=== PATIENT | male | born 1985 | race Hispanic/Latino ===

== ENCOUNTER 2020-02-01 04:15 | Emergency (ER) | payer OTHER, SELFPAY ==
[2020-02-01 04:17] VITALS: BP 145/83; PULSE 75; RESP 18; TEMP 37.1; O2SAT 98; BMI 29.0
--- NOTE | 2020-02-01 04:28 | ED.HA ---
HPI - Headache General Chief Complaint: Headache Stated Complaint: massive headache/migraine 1week Time Seen by Provider: 02/01/20 04:28 Source: patient and family Mode of arrival: Ambulatory Limitations: no limitations History of Present Illness HPI Narrative: 34-year-old male comes to the emergency department with complaint of severe headache. Patient states that headache developed about a week ago very gradually and mild initially. It has been increasing in intensity. Patient states Wednesday he noticed a little bit of blurriness to his vision although he states he can still see normally. He also had 1 episode of nausea and felt like he was going to vomit last night. He has not had any fevers. He denies any neck or back pain. Patient denies any chest pain or shortness of breath. He states lytes do seem to make it a little bit worse. He has not had any nasal congestion or other infectious symptoms. He has not had any issues with bowel movements or urination. Denies any weakness, numbness or tingling in his extremities. He states when he was younger he had ?cysts in his brain? and had regular headaches which resolved around the age of 19. He states after that he stopped following regularly with imaging. He states he did use to take a once daily medication for his headaches he thinks it might have been a Topamax but he is unsure. He is not any medications currently except for asthma. No prior surgeries. He denies allergies to medications. Denies tobacco does drink alcohol typically 4-6 beers daily and states he did not have any today. Denies any substances. He follows with primary care in [facility]. Related Data Previous Rx's Medication Instructions Recorded [id number]-[id number]-[id number] 1 cap PO TID PRN #10 cap 02/01/20 [Fioricet] Allergies Allergy/AdvReac Type Severity Reaction Status Date / Time No Known Drug Allergies Allergy Verified 02/01/20 04:46 Review of Systems Review of Systems ROS Unobtainable: All systems reviewed & are unremarkable except as noted in HPI and below Patient History Social History Smoking Status: Current every day smoker Smoking Status: Current every day smoker Substance Use Type: does not use Exam Narrative Exam Narrative: GEN: well nourished, well appearing male, alert and oriented x 3, patient appears to be in moderate distress. HEENT: Atraumatic, pupils are equal round reactive to light, extraocular movements are intact, mild photophobia, nares are clear, TMs are clear with no fluid, there is no conjunctival pallor. Throat is clear without any exudates, erythema, tonsillar enlargement or uvular deviation, full range of motion of neck, negative Kernig's and Brudzinski. HEART: Regular rate and rhythm without murmur, clicks, rubs. LUNGS:Lungs clear to auscultation, no wheezes, rales, crackles, chest moves symmetrically ABD:bowel sounds normal, soft, non-tender, no guarding, rebound, rigidity, no masses noted, no hepatosplenomegaly :No CVA tenderness MSCL: Non-tender, no muscle atrophy, muscles strength 5/5 upper and lower extremities, full range of motion, normal gait NEURO:CN 2-12 intact, sensation normal, reflexes 2/4 upper and lower extremities. finger nose finger test normal, heel abdi test normal. SKIN: No rash, petechiae or other skin changes. Initial Vital Signs Initial Vital Signs: Vital Signs Temperature 98.7 F 02/01/20 04:17 Pulse Rate 75 02/01/20 04:17 Respiratory Rate 18 02/01/20 04:17 Blood Pressure 145/83 H 02/01/20 04:17 Pulse Oximetry 98 02/01/20 04:17 Scores NIH Stroke Scale Level of Conciousness: Alert, keenly responsive Ask month/age: Answers both questions correctly. Open/close eyes, close hand: Performs both tasks correctly Best gaze horizontal: Normal Facial palsy: Normal symetrical movement Left arm drift: No drift for full 10 sec Right arm drift: No drift for full 10 sec Left leg drift: No drift for full 10 sec Right leg drift: No drift for full 10 sec Limb ataxia: Absent Sensory on face/arms/legs: Normal, no sensory loss Best language: No aphasia, normal Dysarthria: Normal Extinction or inattention: No abnormality Course Orders Ordered: ED Orders 02/01/20 04:40 Basic Metabolic Panel Stat Complete Blood Count AUTO DIFF Stat Partial Thromboplastin Time Stat Prothrombin Time INR Stat 02/01/20 04:45 CT head/brain wo con Stat Discontinued Medications Sodium Chloride (Normal Saline 0.9%) 1,000 mls @ 1,000 mls/hr IV BOLUS ONE Stop: 02/01/20 05:43 Last Infusion: 02/01/20 05:57 Dose: 0 mls/hr Documented by: Admin: 02/01/20 04:52 Dose: 1,000 mls/hr Documented by: TYSHAWN Ketorolac Tromethamine (Toradol) 30 mg IV NOW ONE Stop: 02/01/20 05:47 Last Admin: 02/01/20 05:52 Dose: 30 mg Documented by: TYSHAWN Metoclopramide HCl (Reglan) 10 mg IV NOW ONE Stop: 02/01/20 04:45 Last Admin: 02/01/20 04:52 Dose: 10 mg Documented by: TYSHAWN Vital Signs Vital signs: Vital Signs - 8 hr 02/01/20 04:17 02/01/20 05:58 02/01/20 06:11 Temperature 98.7 F 97.9 F Pulse Rate 75 61 Respiratory Rate 18 15 Blood Pressure 145/83 H Blood Pressure [Right Arm] 133/72 Pulse Oximetry 98 97 MDM - Headache Lab Data Attestation: I reviewed the patient's lab results. Result diagrams: 02/01/20 04:40 02/01/20 04:40 Labs: Lab Results 02/01/20 02/01/20 02/01/20 Range/Units 04:40 04:40 04:40 WBC 9.1 (4.5-11.0) X10^3/uL RBC 4.03 L (4.5-5.9) X10^6/uL Hgb 12.8 L (13.5-17.5) g/dL Hct 37.5 L (41-53) % MCV 93.0 (80-100) fL MCH 31.7 (26-34) PG MCHC 34.1 (30-36) % RDW 13.1 (11.6-14.8) % Plt Count 331 (150-400) X10^3/uL Neut % (Auto) 73.5 (50-75) % Lymph % (Auto) 11.8 L (25-40) % Davison % (Auto) 10.8 (3-14) % Eos % (Auto) 3.4 (2-4) % Baso % (Auto) 0.5 (0-2) % Neut # (Auto) 6700 (1726-4787) /uL Lymph # (Auto) 1100 (1954-4248) /uL Davison # (Auto) 1000 H (0-900) /uL Eos # (Auto) 300 (0-450) /uL Baso # (Auto) 0 (0-100) /uL PT 11.8 (10.1-12.7) SECONDS INR 1.0 (0.9-1.3) APTT 36 (26.4-36.2) SECONDS Sodium 135 L (137-145) mmol/L Potassium 3.6 (3.4-5.1) mmol/L Chloride 101 (98-107) mmol/L Carbon Dioxide 27 (22-32) mmol/L BUN 21 H (9-20) mg/dL Creatinine 0.89 (0.66-1.25) mg/dL Estimated GFR > 60.0 (>60) mL/min BUN/Creatinine Ratio 23.6 H (6-22) Glucose 97 (70-100) mg/dL Calcium 9.4 (8.4-10.2) mg/dL Imaging Data CT scan - head: Radiologist's Impression: Brain parenchyma is normal in volume and morphology. No intracranial hemorrhage, mass effect, midline shift or hydrocephalus is seen. No abnormal extra-axial fluid collections are identified. Posterior fossa arachnoid cyst. No acute intracranial abnormality. Pansinusitis. MDM Narrative Medical decision making narrative: Recheck patient received Reglan and fluids, he is asleep. Patient wakes easily. He sits headache is decreased but is still present. Plan to do a single dose of Toradol. Discussed patient's CT findings. He does have a cyst, we do not have images available for comparison so there is no way to know if it has changed in size but no obstructive changes or acute changes are appreciated on CT today. We discussed this could potentially be related to his headache could be a totally separate issue. He does not have any meningitis or infectious type symptoms, he is not hypertensive, he does not have any other changes concerning for acute neurologic events, patient feels comfortable following up with his primary care. Plan for short course of medication as needed for his headache and patient was given return precautions. Discharge Plan Departure Patient Disposition: Home Clinical Impression: Headache Discharge Date/Time: 02/01/20 06:12 Instructions: DI for Headache Activity Restrictions/Additional Instructions: Follow-up with primary care in the next week for recheck. Call for an appointment. Take medication as prescribed. Return to the ER for fevers greater 100.4 F, rapidly worsening headaches, new vision changes, difficulty with speech, new numbness, tingling or weakness, passing out, chest pain or shortness of breath, persistent vomiting other new or concerning symptoms Prescriptions: New xfwqolizwq-[id number]-bvmv [Fioricet] 50-300-40 mg capsule 1 cap PO TID PRN (Reason: pain) Qty: 10 RF: 0
--- NOTE | 2020-02-01 04:45 | DI.CT.S_ITS ---
PROCEDURE: CT HEAD/BRAIN WO CON INDICATIONS: headache, had cysts on brain, remote historyof headaches TECHNIQUE: Noncontrast 4.5 mm thick angled axial sections acquired from the foramen magnum to the vertex, with coronal and sagittal reformats. For radiation dose reduction, the following was used: automated exposure control, adjustment of mA and/or kV according to patient size. COMPARISON: None. FINDINGS: Image quality: Excellent. CSF spaces: Basal cisterns are patent. There are small arachnoid cysts in posterior fossa. extra-axial fluid collections. Ventricles are normal in size and shape. Brain: No midline shift. No intracranial masses or hemorrhage. Danielle-white matter interface is normal. Skull and face: Calvarium and visualized facial bones are intact, without suspicious lesions. Sinuses: There is mucosal thickening in right frontal, bilateral ethmoid and maxillary sinuses consistent with sinusitis. Mastoids are clear. IMPRESSION: 1. No acute intracranial abnormalities. 2. Sinusitis. No significant discrepancy with the night time babysitter radiology preliminary report. Dictated by: Shruti Mac M.D. on 02/01/2020 at 7:30 Approved by: Shruti Mac M.D. on 02/01/2020 at 7:32
[2020-02-01 04:52] LABS: Add Manual Diff / Slide Review NO; Basophils Absolute Auto 0 /uL (0-100); Basophils Percent Auto 0.5 % (0-2); Eosinophils Absolute Auto 300 /uL (0-450); Eosinophils Percent Auto 3.4 % (2-4); Hematocrit 37.5 % (41-53); Hemoglobin 12.8 g/dL (13.5-17.5); Lymphocytes Absolute Auto 1100 /uL (1100-4500); Lymphocytes Percent Auto 11.8 % (25-40); Mean Corpuscular HGB Conc 34.1 % (30-36); Mean Corpuscular Hemoglobin 31.7 PG (26-34); Monocytes Absolute Auto 1000 /uL (0-900); Monocytes Percent Auto 10.8 % (3-14); Neutrophils Absolute Auto 6700 /uL (1500-7000); Neutrophils Percent Auto 73.5 % (50-75); Platelet Count 331 X10^3/uL (150-400); Red Blood Cell Count 4.03 X10^6/uL (4.5-5.9); Red Cell Distribution Width 13.1 % (11.6-14.8); White Blood Cell Count 9.1 X10^3/uL (4.5-11.0)
[2020-02-01] MEDS: METOCLOPRAMIDE 10 MG/2 ML INJ IV (04:52)
[2020-02-01] MEDS: SODIUM CHLORIDE 0.9% 1,000 ML 1000 ML IV (04:52)
[2020-02-01 04:55] LABS: Prothrombin Time 11.8 SECONDS (10.1-12.7)
[2020-02-01 04:57] LABS: PTT Partial Thromboplastin Tim 36 SECONDS (26.4-36.2)
[2020-02-01 04:58] LABS: BUN Creatinine Ratio 23.6 (6-22); Blood Urea Nitrogen 21 mg/dL (9-20); Calcium 9.4 mg/dL (8.4-10.2); Carbon Dioxide 27 mmol/L (22-32); Chloride 101 mmol/L (98-107); Estimated Glomerular Filt Rate > 60.0 mL/min (>60); Glucose 97 mg/dL (70-100); HEMOLYSIS < 15 (0-50); Potassium 3.6 mmol/L (3.4-5.1); Sodium 135 mmol/L (137-145)
[2020-02-01] MEDS: KETOROLAC 60 MG/2 ML VIAL 30 MG IV (05:52)
[2020-02-01 05:58] VITALS: BP 133/72; PULSE 61; RESP 15; O2SAT 97
[2020-02-01 06:11] VITALS: TEMP 36.6
== END 2020-02-01 06:12 | disposition home or self-care (01) ==
PROVIDERS: Emergency Provider Emergency Medicine
DX: R51 Headache (principal); G93.0 Cerebral cysts
CPT/HCPCS: 36415; 70450; 80048; 85025; 85610; 85730; 96361; 96374; 96375; 99284; J1885; J2765